=== PATIENT | female | born 2000 | race Caucasian/White ===

== ENCOUNTER 2018-09-21 03:41 | Emergency (ER) | payer OTHER ==
--- NOTE | 2018-09-21 03:47 | EDPHY ---
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 This morning with multiple episodes of diarrhea. Is approximately 30 min ago she woke up with severe epigastric abdominal cramping pain. She vomited once. No blood or coffee-grounds in her emesis. No blood or dark tarry diarrhea. She is complaining of 7/10 epigastric pain which is burning. Is not migrating. No aggravating or alleviating factors. No history of similar episodes in the past. No fevers or chills. No cough. Last menstrual cycle was last week and was normal. Does not believe she is but is sexually active and does not use control. No vaginal discharge or bleeding. No urinary urgency or frequency. ROS: 10 systems were reviewed and were negative except those elements noted in the HPI. PMH: Acne Social History: No smoking, occasional alcohol, no recreational drug use Family History: non-contributory Physical Exam: Gen: Awake, Alert, No Distress HEENT: Nose: no rhinorrhea Eyes: PERRLA, EOMI Mouth: Moist mucosa Neck: Supple, no JVD Chest: nontender, lungs clear to auscultation Heart: S1, S2 normal, no murmur Abd: Soft, mild epigastric tenderness, low abdomen is completely soft with no tenderness or guarding whatsoever. Back: no CVA tenderness, no midline tenderness Ext: no edema, non-tender Skin: no rash Neuro: CN II-XII intact, Sensation grossly intact, Strength 5/5 in bilateral upper and lower extremities Constitutional: Initial Vital Signs Heart Rate 92 09/21/18 03:46 Respiratory Rate 16 09/21/18 03:46 Blood Pressure 106/74 09/21/18 03:46 O2 Sat (%) 6 L 09/21/18 03:46 O2 Delivery Mode Room Air Allergies/Adverse Reactions: No Known Allergies Allergy (Unverified 09/21/18 03:45) Home Medications: Medication Instructions Recorded Doxycycline Calcium 09/21/18 Medical Decision Making ED Course/Re-evaluation: Patient is improved after IV fluids, GI cocktail, Toradol and Pepcid. Abdomen is soft and benign. Laboratory evaluations unremarkable. Symptoms consistent with gastroenteritis. Will discharge with [id number] famotidine as needed , Zofran, follow up at [facility]. - Data Points Laboratory Results: Laboratory Results 09/21/18 04:00 09/21/18 04:00 09/21/18 09/21/18 09/21/18 04:00 04:00 04:00 WBC 11.29 10^3/uL H 10^3/uL (3.80-9.50) RBC 4.91 10^6/uL 10^6/uL (4.18-5.33) Hgb 14.1 g/dL g/dL (12.6-16.3) Hct 41.7 % % (38.0-47.0) MCV 84.9 fL fL (81.5-99.8) MCH 28.7 pg pg (27.9-34.1) MCHC 33.8 g/dL g/dL (32.4-36.7) RDW 12.4 % % (11.5-15.2) Plt Count 241 10^3/uL 10^3/uL (150-400) MPV 11.4 fL fL (8.7-11.7) Neut % (Auto) 74.9 % H % (39.3-74.2) Lymph % (Auto) 17.7 % % (15.0-45.0) Dixie % (Auto) 5.8 % % (4.5-13.0) Eos % (Auto) 0.9 % % (0.6-7.6) Baso % (Auto) 0.4 % % (0.3-1.7) Nucleat RBC Rel Count 0.0 % % (0.0-0.2) Absolute Neuts (auto) 8.46 10^3/uL H 10^3/uL (1.70-6.50) Absolute Lymphs (auto) 2.00 10^3/uL 10^3/uL (1.00-3.00) Absolute Monos (auto) 0.65 10^3/uL 10^3/uL (0.30-0.80) Absolute Eos (auto) 0.10 10^3/uL 10^3/uL (0.03-0.40) Absolute Basos (auto) 0.05 10^3/uL 10^3/uL (0.02-0.10) Absolute Nucleated RBC 0.00 10^3/uL 10^3/uL (0-0.01) Immature Gran % 0.3 % % (0.0-1.1) Immature Gran # 0.03 10^3/uL 10^3/uL (0.00-0.10) Sodium 136 mEq/L mEq/L (135-145) Potassium 3.4 mEq/L L mEq/L (3.5-5.2) Chloride 105 mEq/L mEq/L (97-110) Carbon Dioxide 22 mEq/l mEq/l (22-31) Anion Gap 9 mEq/L mEq/L (6-14) BUN 14 mg/dL mg/dL (7-23) Creatinine 0.8 mg/dL mg/dL (0.6-1.0) Estimated GFR > 60 Glucose 123 mg/dL H mg/dL (70-100) Calcium 9.8 mg/dL mg/dL (8.5-10.4) Total Bilirubin 0.8 mg/dL mg/dL (0.1-1.4) AST 34 IU/L IU/L (14-46) ALT 40 IU/L IU/L (9-52) Alkaline Phosphatase 44 IU/L IU/L (38-126) Total Protein 6.6 g/dL g/dL (6.3-8.2) Albumin 4.3 g/dL g/dL (3.5-5.0) Lipase 118 IU/L IU/L (23-300) Beta HCG, Qual NEGATIVE Medications Given: Discontinued Medications Al Hydroxide/Mg Hydroxide (Maalox Susp) 30 ml PO ONCE ONE Stop: 09/21/18 04:00 Last Admin: 09/21/18 04:10 Dose: 30 ml Famotidine (Pepcid) 20 mg PO EDNOW ONE Stop: 09/21/18 04:00 Last Admin: 09/21/18 04:08 Dose: 20 mg Sodium Chloride (Ns) 1,000 mls @ 0 mls/hr IV ONCE ONE; Wide Open PRN Reason: Protocol Stop: 09/21/18 04:00 Last Admin: 09/21/18 04:07 Dose: 1,000 mls Ketorolac Tromethamine (Toradol) 15 mg IVP EDNOW ONE Stop: 09/21/18 04:00 Last Admin: 09/21/18 04:07 Dose: 15 mg Lidocaine (Lidocaine 2% Viscous) 15 ml PO ONCE ONE Stop: 09/21/18 04:00 Last Admin: 09/21/18 04:10 Dose: 15 ml Departure - Departure Disposition: Home, Routine, Self-Care Clinical Impression: Acute gastroenteritis Condition: Good Instructions: Gastroenteritis (ED), Ondansetron (By mouth) Additional Instructions: You may take Zofran as needed for nausea vomiting. Take famotidine available [id number] for upper abdominal pain. Follow up with student health in to 3 days if symptoms are not improving. Referrals: [facility] ,. [Clinic] - As per Instructions
[2018-09-21] MEDS ORDERED: MAG HYDROX/AL HYDROX/SIMETH 30 ML UDCUP PO ONE (03:59)
[2018-09-21] MEDS ORDERED: NS 1,000 ML IV ONE (03:59)
[2018-09-21] MEDS ORDERED: KETOROLAC 15 MG/1 ML SDV IVP ONE (03:59)
[2018-09-21] MEDS ORDERED: FAMOTIDINE 20 MG TAB PO ONE (03:59)
[2018-09-21] MEDS ORDERED: LIDOCAINE 2% VISCOUS 15 ML UDCUP PO ONE (03:59)
[2018-09-21 04:09] LABS: PLATELET COUNT 241 10^3/uL (150-400)
[2018-09-21] MEDS ORDERED: ONDANSETRON 4MG PREPACK#2 BTL TAKEHOME ONE (04:36)
[2018-09-21 04:47] VITALS: BP 102/68
== END 2018-09-21 04:46 | disposition home or self-care (01) ==
DX: K52.9 Noninfective gastroenteritis and colitis, unspecified (principal); E86.9 Volume depletion, unspecified
CPT/HCPCS: 96374; J1885